=== PATIENT | female | born 1990 | race Caucasian/White ===

== ENCOUNTER 2016-08-24 03:45 | Emergency (ER) | payer BC, OTHER ==
[~2016-08-24] VITALS: Ht 172.7 cm; Wt 65.0 kg
[2016-08-24 03:57] VITALS: BP 122/68; PULSE 97; RESP 18; TEMP 97.4; O2SAT 100
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
[2016-08-24] MEDS ORDERED: ACETAMINOPHEN 325 MG TAB PO ONE (06:30)
[2016-08-24 08:10] VITALS: BP 118/72
== END 2016-08-24 08:12 | disposition home or self-care (01) ==
LOC: NEPB 03:45
DX: O26.891 Other specified pregnancy related conditions, first trimester (principal); S00.83XA Contusion of other part of head, initial encounter; F19.10 Other psychoactive substance abuse, uncomplicated; M26.4 Malocclusion, unspecified; R68.84 Jaw pain; Z72.0 Tobacco use; Z3A.01 Less than 8 weeks gestation of pregnancy; Y04.2XXA Assault by strike against or bumped into by another person, initial encounter
CPT/HCPCS: 70110; 99284

== ENCOUNTER 2016-10-25 11:17 | Emergency (ER) | payer BC, OTHER ==
[~2016-10-25] VITALS: Ht 172.7 cm; Wt 70.0 kg
[2016-10-25 11:19] VITALS: BP 114/83; PULSE 138; RESP 18; TEMP 100.2; O2SAT 99
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
[2016-10-25] MEDS ORDERED: ONDANSETRON HCL 4 MG/2 ML VIAL IV PUSH ONE (12:15)
[2016-10-25] MEDS ORDERED: ACETAMINOPHEN 650 MG SUPP RECTAL ONE (12:15)
[2016-10-25] MEDS ORDERED: SODIUM CHLOR 0.9% 1000 ML INJ 1,000 ML IV ONE ×2 (12:15)
[2016-10-25 12:44] LABS: AUTOMATED NEUTROPHIL # 3.5 TH/MM3 (1.8-7.7); BASOPHIL % 0.2 % (0.0-2.0); EOSINOPHIL # 0.1 TH/MM3 (0-0.4); EOSINOPHIL % 2.3 % (0.0-4.0); HEMATOCRIT 42.1 % (35.0-46.0); HEMO FLAGS DIFF FINAL; LYMPH % 7.7 % (9.0-44.0); LYMPHOCYTE # 0.3 TH/MM3 (1.0-4.8); MEAN CELL VOLUME 92.6 FL (80.0-100.0); MEAN CORPUSCULAR HEMOGLOBIN 30.3 PG (27.0-34.0); MEAN CORPUSCULAR HGB CONC 32.7 % (32.0-36.0); NEUT % 84.8 % (16.0-70.0); PLATELET COUNT 179 TH/MM3 (150-450); RED BLOOD COUNT 4.55 MIL/MM3 (4.00-5.30); RED CELL DISTRIBUTION WIDTH 14.7 % (11.6-17.2); WHITE BLOOD COUNT 4.1 TH/MM3 (4.0-11.0)
[2016-10-25 12:48] LABS: BACTERIA, URINE OCC /hpf; BLOOD, URINE NEG (NEG); COMMENT (UR) CULTURE INDICATED; CULTURE IF INDICATED CULTURE INDICATED; GLUCOSE,URINE NEG (NEG); KETONE, URINE NEG (NEG); MUCUS URINE FEW /lpf (OCC); NITRITE,URINE NEG (NEG); PH, URINE 5.5 (5.0-8.5); SQUAMOUS EPITHELIAL CELL URINE 1 /hpf (0-5); URINE COLOR YELLOW (YELLW/STRAW)
[2016-10-25 13:03] LABS: BICARBONATE 27.8 MEQ/L (21.0-32.0); POTASSIUM 3.8 MEQ/L (3.5-5.1)
[2016-10-25] MEDS ORDERED: MACR100C2 PO (13:40)
[2016-10-25] MEDS ORDERED: ZOFR4TAB3 SL (13:40)
[2016-10-25] MEDS ORDERED: NITROFURANTOIN MONOHYD MACROCR 100 MG CAP PO ONE (13:45)
== END 2016-10-25 14:28 | disposition home or self-care (01) ==
LOC: NEPD 11:17
DX: K52.9 Noninfective gastroenteritis and colitis, unspecified (principal); E86.0 Dehydration; N39.0 Urinary tract infection, site not specified; B95.1 Streptococcus, group B, as the cause of diseases classified elsewhere
CPT/HCPCS: 80048; 81001; 84703; 85025; 86403; 87040; 87086; 87804; 96361; 96374; 99284; J2405; J7030